=== PATIENT | female | born 1995 | race Caucasian/White ===

== ENCOUNTER 2019-10-02 16:03 | Emergency (ER) | payer OTHER, SELFPAY ==
[2019-10-02 16:08] VITALS: BP 147/93; PULSE 66; RESP 16; TEMP 36.9; O2SAT 100
--- NOTE | 2019-10-02 16:44 | ED.FEMALEGU ---
HPI - Female Genitourinary General Chief complaint: Urogenital-Female Stated complaint: Pos UTI Time Seen by Provider: 10/02/19 16:37 Source: patient and RN notes reviewed Mode of arrival: ambulatory Limitations: no limitations History of Present Illness HPI Narrative: Patient presents today complaining of dysuria, frequency, and lower abdominal cramping since yesterday. Denies back pain, fever, sweats or chills, hematuria. Denies history of frequent UTIs. Patient takes continuous control. Reports Augmentin use in the past 2 months for respiratory illness. MD elicited complaint: dysuria Related Data Home Medications Medication Instructions Recorded Confirmed beclomethasone dipropionate [Qvar INHALATION 10/02/19 RediHaler] levonorgestrel-ethinyl estrad tablet 10/02/19 [Vienva] montelukast mg 10/02/19 Allergies Allergy/AdvReac Type Severity Reaction Status Date / Time doxycycline Allergy Severe rash Verified 05/22/19 17:25 Sulfa (Sulfonamide Allergy Unknown HIVES Verified 05/22/19 17:25 Antibiotics) Review of Systems Review of Systems: Narrative: CONSTITUTIONAL: Denies body aches, fever, chills, or sweats. EYES: Denies visual changes, redness, or discharge. ENT: Denies rhinorrhea, congestion, sore throat, or otalgia. CARDIOVASCULAR: Denies chest pain, palpitations, or edema. RESPIRATORY: Denies cough or dyspnea. GASTROINTESTINAL: Denies abdominal pain, nausea, vomiting, or diarrhea. GENITOURINARY: Denies hematuria. + Dysuria, frequency, lower abdominal cramping SKIN: Denies rash, itching, or wounds. MUSCULOSKELETAL: Denies back pain, joint pain, or myalgia. NEUROLOGIC: Denies headache, numbness, tingling, or weakness. PSYCH: Denies depression or anxiety. PMFSH Comments At time of signature, I have reviewed and agree with nursing past medical, surgical, social and family history unless otherwise noted. Please see nursing chart for further information. There is no relevant family history pertinent to the presenting complaint Exam Narrative: Exam Narrative: GENERAL: Well-appearing, well-nourished, and in no acute distress. HEAD: Normocephalic, atraumatic. EYES: EOMI. No redness or drainage. Conjunctivae normal. ENT: Mucous membranes pink and moist. NECK: Normal AROM. CHEST: No respiratory distress. Clear to auscultation. HEART: Regular rate and rhythm. No murmur appreciated. Normal peripheral pulses. ABDOMEN: Soft, nondistended, normal active bowel sounds.-CVAT.+ Suprapubic tenderness MUSCULOSKELETAL: No bony tenderness. EXTREMITIES: Normal range of motion. No edema. SKIN: Warm, dry, no rash. NEURO: No focal deficits. Alert and oriented x3. Gait steady. PSYCH: Normal affect. No signs of depression or anxiety. Course Vital Signs Vital signs: Vital Signs Temperature 98.4 F 10/02/19 16:08 Pulse Rate 66 10/02/19 16:08 Respiratory Rate 16 10/02/19 16:08 Blood Pressure 147/93 H 10/02/19 16:08 Pulse Oximetry 100 10/02/19 16:08 Temperature 98.4 F 10/02/19 16:08 Pulse Rate 66 10/02/19 16:08 Respiratory Rate 16 10/02/19 16:08 Blood Pressure 147/93 H 10/02/19 16:08 Pulse Oximetry 100 10/02/19 16:08 Reviewed. Pt has been instructed to follow up with her PCP regarding her elevated blood pressure today. MDM - Female Genitourinary Differential Diagnosis Differential diagnosis: Likely urinary tract infection, vaginitis and cystitis Lab Data Attestation: I reviewed the patient's lab results. Labs: Urine Glucose Negative Reference Range: Negative Urine Bilirubin Negative Reference Range: Negative Urine Ketone Negative Reference Range: Negative Urine Specific Lydia 1.015 Reference Range:1.001-1.035 Urine Blood Trace Reference Range: Negative * * Urine pH 7.0
== END 2019-10-02 16:56 | disposition home or self-care (01) ==
PROVIDERS: Emergency Provider Nurse Practitioner
DX: N30.01 Acute cystitis with hematuria (principal)
CPT/HCPCS: 81003; 87086; 99213; G0463